=== PATIENT | female | born 1960 | race Caucasian/White ===

== ENCOUNTER 2017-08-05 09:40 | Day surgery (SDC) | payer OTHER ==
[~2017-08-05 09:40] MED LIST: NOMEDS *
--- NOTE | 2017-08-05 11:51 | Operative Note ---
Colonoscopy ([place]) Procedure date: 08/05/17 Date of : 58 Procedure:Colonoscopy Colonoscopy with cold snare polypectomy Indications: Mrs. Grande is a 56-year-old female who is here for follow-up screening/ surveillance colonoscopy. The patient does state that she had a colonoscopy 5-6 years ago but no colon polyps were removed. Her father had a "twisted bowel" but no colon cancer. She does state that her maternal grandfather had colon cancer. She reports no abdominal pain, weight loss, change in her bowel habits or rectal bleeding. Performing Provider: German Coronado MD Referrring Provider: Fran Mcgraw M.D. Sedation: Fentanyl 200 mg IV/Versed 9 mg IV Procedure: Prior to the procedure, a history and physical exam was performed, and patient medications and allergies were reviewed. The risks and benefits of the procedure and the sedation options and risks were discussed with the patient. All questions were answered and informed consent was obtained. Patient identification and proposed procedure were verified by the physician and the nurse. The patient was placed in a left lateral decubitus position. Throughout the procedure, the patient's blood pressure, pulse, and oxygen saturations were monitored continuously. Findings: On digital rectal examination there was normal rectal tone. There were no external hemorrhoids. The colonoscope was introduced through the anal canal to the rectum and advanced to the cecum. The ileocecal valve and appendiceal orifice were identified. The scope was advanced a short distance into the ileum which appeared grossly normal. The scope was then withdrawn into the colon. There was a single 5-6 mm polyp in the ascending colon removed via cold snare polypectomy. The cecum, ascending and transverse colon and mucosa were grossly normal. There were scattered diverticuli throughout the descending and sigmoid colon (LEFT colon). There was moderate colonic redundancy. The rectum itself was normal. Upon retroflexion within the rectum there were grade 1 internal hemorrhoids. Impressions: 1. Ascending colon polyp 2. Left-sided diverticulosis 3. Colonic redundancy 4. Grade 1 internal hemorrhoids Recommendations: I will follow up the polyp pathology and recommend repeat colonoscopy again in 5 years based upon the polyp histology. I would encourage fiber supplementation on a long-term daily maintenance basis. Complications: None EBL (ml): 0 at 1151
[2017-08-05 16:34] VITALS: BP 120/75
== END 2017-08-05 12:50 | disposition home or self-care (01) ==
LOC: SDC 09:40
PROVIDERS: Internal Medicine Gastroenterology
PROC: 0DBK8ZX Excision of Ascending Colon, Via Natural or Artificial Opening Endoscopic, Diagnostic (ICD-10-PCS; principal; 2017-08-05 11:00)
DX: Z12.11 Encounter for screening for malignant neoplasm of colon (principal); D12.2 Benign neoplasm of ascending colon; K57.30 Diverticulosis of large intestine without perforation or abscess without bleeding; K64.0 First degree hemorrhoids